=== PATIENT | male | born 1995 | race African-American/Black ===

== ENCOUNTER 2022-04-25 10:56 | Emergency (ER) | payer SELFPAY ==
[~2022-04-25] VITALS: Ht 180.3 cm; Wt 100.0 kg
[2022-04-25] MEDS ORDERED: LIDOCAINE HCL 4% CREAM 76GM TUBE TP STA (13:19)
[2022-04-25] MEDS ORDERED: MAGNESIUM/ALUMINUM HYDROXIDE/SIMETHICONE 30ML UDC PO ONE (13:30)
[2022-04-25] MEDS ORDERED: LIDO700A30 TP (13:59)
[2022-04-25 15:11] VITALS: BP 125/86
== END 2022-04-25 15:13 | disposition home or self-care (01) ==
LOC: ER 10:56
DX: L30.9 Dermatitis, unspecified (principal)
CPT/HCPCS: 99283